=== PATIENT | male | born 1980 ===

== ENCOUNTER 2017-02-24 05:00 | Emergency (ER) | payer OTHER ==
--- NOTE | 2017-02-24 05:26 | ED PDOC ---
Arrival/HPI - General Chief Complaint: Psychiatric Evaluation Time Seen by Provider: 02/24/17 05:06 Historian: Patient, EMS - History of Present Illness Narrative History of Present Illness (Text): 02/24/17 05:25 Arslan Smart is a 36 year old male, denies any significant past medical history, who presents to the Emergency department brought in by EMS for psychiatric evaluation. EMS reports patient was found in the hallway of a fire house disoriented tonight. Patient admits to smoking marijuana tonight. Patient denies any depression, suicidal ideation, homicidal ideation, chest pain, shortness of breath, nausea, vomiting, headache, dizziness, or any other complaints. Time/Duration: Other (tonight) Symptom Onset: Gradual Symptom Course: Unchanged Activities at Onset: Light Context: Home Past Medical History - Provider Review Nursing Documentation Reviewed: Yes - Psychiatric Hx Substance Use: Yes (marijuana today) Family/Social History - Physician Review Nursing Documentation Reviewed: Yes Family/Social History: Unknown Family HX Smoking Status: Never Smoked Hx Alcohol Use: No Hx Substance Use: Yes (marijuana today) Allergies/Home Meds Allergies/Adverse Reactions: Allergies No Known Allergies Allergy (Verified 02/24/17 05:08) Home Medications: Home Meds Medication Instructions Recorded Confirmed No Known Home Med 02/24/17 02/24/17 Review of Systems - Physician Review All systems were reviewed & negative as marked: Yes - Review of Systems Constitutional: Normal. absent: Fevers Eyes: Normal ENT: Normal Respiratory: Normal. absent: SOB, Cough Cardiovascular: Normal. absent: Chest Pain Gastrointestinal: Normal. absent: Abdominal Pain, Diarrhea, Nausea, Vomiting Genitourinary Male: Normal. absent: Dysuria, Frequency, Hematuria, Urinary Output Changes Musculoskeletal: Normal. absent: Back Pain, Neck Pain Skin: Normal. absent: Rash Neurological: Normal. absent: Headache, Dizziness Endocrine: Normal Hemo/Lymphatic: Normal Psychiatric: Normal. absent: Depression, Suicidal Ideation Physical Exam Vital Signs Reviewed: Yes Vital Signs Temp Pulse Resp BP Pulse Ox 02/24/17 09:51 90 17 179/90 H 100 02/24/17 07:31 98.8 F 100 H 18 166/112 H 100 02/24/17 05:33 162/104 H 02/24/17 05:10 108 H 16 182/111 H 97 Temperature: Afebrile Blood Pressure: Hypertensive Pulse: Regular Respiratory Rate: Normal Appearance: Positive for: Well-Appearing, Non-Toxic, Comfortable Pain Distress: None Mental Status: Positive for: Alert and Oriented X 3 - Systems Exam Head: Present: Atraumatic, Normocephalic Pupils: Present: PERRL Extroacular Muscles: Present: EOMI Conjunctiva: Present: Normal Mouth: Present: Moist Mucous Membranes Neck: Present: Normal Range of Motion Respiratory/Chest: Present: Clear to Auscultation, Good Air Exchange. No: Respiratory Distress, Accessory Muscle Use Cardiovascular: Present: Regular Rate and Rhythm, Normal S1, S2. No: Murmurs Abdomen: Present: Normal Bowel Sounds. No: Tenderness, Distention, Peritoneal Signs Back: Present: Normal Inspection Upper Extremity: Present: Normal Inspection. No: Cyanosis, Edema Lower Extremity: Present: Normal Inspection. No: Edema Neurological: Present: GCS=15, CN II-XII Intact, Speech Normal Skin: Present: Warm, Dry, Normal Color. No: Rashes Psychiatric: Present: Alert, Oriented x 3, Normal Insight, Normal Concentration Medical Decision Making ED Course and Treatment: 02/24/17 05:25 Impression: 36 year old male brought in for psychiatric evaluation. Plan: -- EKG -- Labs, alcohol level -- Urinalysis, urine drug screen -- Reassess and disposition Progress Notes: 02/24/17 05:41 Reviewed EKG, sinus tachycardia at [address]-segment elevations or depressions, no T-wave inversions, normal intervals. 02/24/17 07:[address] Sigala, pending medical clearance, PES evaluation, and disposition. - Lab Interpretations Lab Results: 02/24/17 05:40 02/24/17 05:40 Lab Results 02/24/17 07:50: Urine Opiates Screen Negative, Urine Methadone Screen Negative, Ur Barbiturates Screen Negative, Ur Phencyclidine Scrn Positive H, Ur Amphetamines Screen Negative, U Benzodiazepines Scrn Positive, U Oth Cocaine Metabols Negative, U Cannabinoids Screen Positive H 02/24/17 07:50: Urine Color Yellow, Urine Appearance Clear, Urine pH 6.0, Ur Specific [place] 1.025, Urine Protein Trace H, Urine Glucose (UA) Negative, Urine Ketones Negative, Urine Blood Negative, Urine Nitrate Negative, Urine Bilirubin Negative, Urine Urobilinogen 0.2, Ur Leukocyte Esterase Negative, Urine RBC 0 - 2, Urine WBC 0 - 2, Ur Epithelial Cells 0 - 2 02/24/17 05:40: Alcohol, Quantitative < 10 02/24/17 05:40: Salicylates < 1 L, Acetaminophen < 10.0 L 02/24/17 05:40: Sodium 142, Potassium 3.5 L, Chloride 102, Carbon Dioxide 25, Anion Gap 19, BUN 14, Creatinine 0.9, Est GFR ( Amer) > 60, Est GFR (Non- Af Amer) > 60, Random Glucose 117 H, Calcium 10.2, Total Bilirubin 0.3, AST 37, ALT 42, Alkaline Phosphatase 101, Total Protein 8.4 H, Albumin 5.0 H, Globulin 3.4, Albumin/Globulin Ratio 1.5 02/24/17 05:40: WBC 11.7 H, RBC 4.75, Hgb 14.8, Hct 43.9, MCV 92.4, MCH 31.2, MCHC 33.7, RDW 13.5, Plt Count 363, MPV 9.6, Gran % 76.7 H, Lymph % (Auto) 14.2 L, George % (Auto) 8.8 H, Eos % (Auto) 0.2 L, Baso % (Auto) 0.1, Gran # 8.95 H, Lymph # 1.7, George # 1.0 H, Eos # 0.0, Baso # 0.01 - EKG Interpretation Interpreted by ED Physician: Yes Type: 12 lead EKG - Transfer of Care Patient signed out to Dr:: teresa fischer - Tommyibpura Statement The provider has reviewed the documentation as recorded by the Adamaris Solorio Provider Scribe Attestation: All medical record entries made by the Tommyibpura were at my direction and personally dictated by me. I have reviewed the chart and agree that the record accurately reflects my personal performance of the history, physical exam, medical decision making, and the department course for this patient. I have also personally directed, reviewed, and agree with the discharge instructions and disposition. Disposition/Present on Arrival - Present on Arrival Any Indicators Present on Arrival: No History of DVT/PE: No History of Uncontrolled Diabetes: No Urinary Catheter: No History of Decub. Ulcer: No History Surgical Site Infection Following: None - Disposition Have Diagnosis and Disposition been Completed?: Yes Diagnosis: Mood disorder, Substance abuse Disposition: HOME/ ROUTINE Disposition Time: 07:00 Condition: GOOD Discharge Instructions (ExitCare): Mood Disorders (ED), Polysubstance Abuse (ED ) Additional Instructions: Ann Saavedra that you are going through all of this right now. Please follow up as an outpatient using the list of referrals from our mental health screener. Return to us if worse or new problems. Best- Dr. Jeremy Sigala Forms: [employer] (Taiwanese)
[2017-02-24 06:36] LABS: BASO # 0.01 K/mm3 (0.0-2.0); BASO % 0.1 % (0.0-3.0); EOS % 0.2 % (1.5-5.0); GRAN # 8.95 (1.4-6.5); GRAN % 76.7 % (50.0-68.0); HEMOGLOBIN 14.8 g/dL (14.0-18.0); LYMPH # 1.7 (1.2-3.4); LYMPH % 14.2 % (22.0-35.0); MEAN CELL VOLUME 92.4 fl (80.0-105.0); MEAN CORPUSCULAR HEMOGLOBIN 31.2 pg (25.0-35.0); MEAN CORPUSCULAR HGB CONC 33.7 g/dl (31.0-37.0); MEAN PLATELET VOLUME 9.6 fl (7.0-11.0); MONO % 8.8 % (1.0-6.0); RBC 4.75 10^6/uL (3.5-6.1); RED CELL DISTRIBUTION WIDTH 13.5 % (11.5-14.5); WHITE BLOOD COUNT 11.7 10^3/ul (4.5-11.0)
--- NOTE | 2017-02-24 07:10 | ED PDOC ---
Physical Exam Vital Signs Reviewed: Yes Vital Signs Temp Pulse Resp BP Pulse Ox 02/24/17 09:51 90 17 179/90 H 100 02/24/17 07:31 98.8 F 100 H 18 166/112 H 100 02/24/17 05:33 162/104 H 02/24/17 05:10 108 H 16 182/111 H 97 Blood Pressure: Hypertensive Pulse: Tachycardic Respiratory Rate: Normal Medical Decision Making ED Course and Treatment: 02/24/17 07:10 Patient endorsed to me by Dr. Cid at 07:00, pending labs and PES evaluation. 02/24/17 11:26 Patient evaluated by PES worker Rufina, reports patient can be discharged home and follow up outpatient. - Lab Interpretations Lab Results: 02/24/17 05:40 02/24/17 05:40 Lab Results 02/24/17 07:50: Urine Opiates Screen Negative, Urine Methadone Screen Negative, Ur Barbiturates Screen Negative, Ur Phencyclidine Scrn Positive H, Ur Amphetamines Screen Negative, U Benzodiazepines Scrn Positive, U Oth Cocaine Metabols Negative, U Cannabinoids Screen Positive H 02/24/17 07:50: Urine Color Yellow, Urine Appearance Clear, Urine pH 6.0, Ur Specific [place] 1.025, Urine Protein Trace H, Urine Glucose (UA) Negative, Urine Ketones Negative, Urine Blood Negative, Urine Nitrate Negative, Urine Bilirubin Negative, Urine Urobilinogen 0.2, Ur Leukocyte Esterase Negative, Urine RBC 0 - 2, Urine WBC 0 - 2, Ur Epithelial Cells 0 - 2 02/24/17 05:40: Alcohol, Quantitative < 10 02/24/17 05:40: Salicylates < 1 L, Acetaminophen < 10.0 L 02/24/17 05:40: Sodium 142, Potassium 3.5 L, Chloride 102, Carbon Dioxide 25, Anion Gap 19, BUN 14, Creatinine 0.9, Est GFR ( Amer) > 60, Est GFR (Non- Af Amer) > 60, Random Glucose 117 H, Calcium 10.2, Total Bilirubin 0.3, AST 37, ALT 42, Alkaline Phosphatase 101, Total Protein 8.4 H, Albumin 5.0 H, Globulin 3.4, Albumin/Globulin Ratio 1.5 02/24/17 05:40: WBC 11.7 H, RBC 4.75, Hgb 14.8, Hct 43.9, MCV 92.4, MCH 31.2, MCHC 33.7, RDW 13.5, Plt Count 363, MPV 9.6, Gran % 76.7 H, Lymph % (Auto) 14.2 L, [place] % (Auto) 8.8 H, Eos % (Auto) 0.2 L, Baso % (Auto) 0.1, Gran # 8.95 H, Lymph # 1.7, [place] # 1.0 H, Eos # 0.0, Baso # 0.01 Disposition/Present on Arrival - Present on Arrival Any Indicators Present on Arrival: No History of DVT/PE: No History of Uncontrolled Diabetes: No Urinary Catheter: No History of Decub. Ulcer: No History Surgical Site Infection Following: None - Disposition Have Diagnosis and Disposition been Completed?: Yes Diagnosis: Mood disorder, Substance abuse Disposition: HOME/ ROUTINE Disposition Time: 11:26 Patient Plan: Discharge Condition: GOOD Discharge Instructions (ExitCare): Mood Disorders (ED), Polysubstance Abuse (ED ) Additional Instructions: Ann Saavedra that you are going through all of this right now. Please follow up as an outpatient using the list of referrals from our mental health screener. Return to us if worse or new problems. Nasir- Dr. Jeremy Sigala Forms: [employer] (Urdu)
[2017-02-24 07:21] LABS: ALT/SGPT 42 U/L (7-56); AST/SGOT 37 U/L (17-59); BLOOD UREA NITROGEN 14 mg/dL (7-21); CALCIUM 10.2 mg/dL (8.4-10.5); GFR AFRICAN-AMERICAN > 60; GFR NON-AFRICAN AMERICAN > 60
[2017-02-24 07:35] LABS: ALB/GLOB RATIO 1.5 (1.1-1.8)
[2017-02-24 07:37] VITALS: TEMP 98.8; O2SAT 100
[2017-02-24 08:02] LABS: URINE BILIRUBIN NEGATIVE (NEGATIVE); URINE BLOOD NEGATIVE (NEGATIVE); URINE GLUCOSE (UA) NEGATIVE (NEGATIVE); URINE LEUKOCYTE ESTERASE NEGATIVE Leu/uL (NEGATIVE); URINE NITRATE NEGATIVE (NEGATIVE); URINE PROTEIN TRACE mg/dL (<30 mg/dL); URINE UROBILINOGEN 0.2 E.U./dL (<1 E.U./dL)
[2017-02-24 08:04] LABS: URINE APPEARANCE CLEAR (CLEAR); URINE COLOR YELLOW (YELLOW)
[2017-02-24 08:07] LABS: URINE EPITHELIAL CELLS 0 - 2 /hpf (0-5); URINE RBC 0 - 2 /hpf (0-2); URINE WBC 0 - 2 /hpf (0-6)
[2017-02-24 08:53] LABS: BARBITURATES, UR NEGATIVE (NEGATIVE); OPIATES, UR NEGATIVE (NEGATIVE)
[2017-02-24 08:54] LABS: BENZODIAZEPINES, UR POSITIVE (NEGATIVE); PHENCYCLIDINE, UR POSITIVE (NEGATIVE)
[2017-02-24 09:36] LABS: ACETAMINOPHEN < 10.0 ug/ml (10.0-20.0); SALICYLATE < 1 mg/dL (2.0-20.0)
[2017-02-24 09:52] VITALS: BP 179/90; PULSE 90; RESP 17
--- NOTE | 2017-02-24 11:50 | CARD ---
APPROVED REPORT EKG Measurement Heart [id number] <Conclusion> Sinus tachycardia Electrical artifact present WNL
--- NOTE | 2017-02-25 13:02 | CON ---
DATE: 02/24/2017 PRESENTATION: The patient is a 36-year-old male seen at bedside in the emergency room, I was called for a consult to do a [id number] in the emergency room with this patient. He had presented to the emergency room brought in by EMS for psychiatric evaluation. He was found in the hallway of a firehouse disoriented. He admits to smoking marijuana and denied any psychiatric symptoms. No depression. No suicidal ideation. He was seen at bedside with his girlfriend. I asked her to step out while I spoke with him. The patient was cooperative with the interview. He indicates that he used marijuana and he got lost. His UTOX was noted to be positive for both PCP and marijuana. He indicated that that was true. However, he indicated he has been drinking as well. He indicates that he currently lives with his fiancee in an apartment in [place]. 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 He does have Medicaid. He denies having been psychiatrically hospitalized in the past. He denies ever being on any psychiatric medications and denies ever having any suicidal attempt or suicidal ideations. He indicates that he does have a problem with substances, he has been using them since he was 12 years old. He indicates that he started using when his friends did. In the recent past, he has used MDMA two days ago, marijuana, he has been a daily user since age of 12. PCP is an occasional use and he just used today. Alcohol, he only drinks when he uses, not on its own and he occasionally uses benzos. His drug of choice is marijuana and this is what he uses most of the time. Medically, he indicates that he has asthma and he uses an albuterol inhaler for this. He denies ever being in the . Legally, he has been in alf a few times for possession. He denies any access to weapons, any past or current history of violence or violent crimes. The patient denies any family history of alcohol, drugs or suicidal behaviors. The patient indicates he grew up in [place]. He lives with his mother. His father left early on, he does not have a relationship with his dad. He is the only child of his mother and father. His mother remarried when the patient was 4 and he has a half sister from that marriage with whom he is close. He indicates that he did well in school, his childhood was good. He graduated from high school in a regular education program and he did okay in school. He played basketball. 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 He went to [facility] [employer] for a little while, but he never quite is finished what he had set out to do. He has been in many rehabs in the past. He went to [facility] in [place]. He was inpatient there a couple of times, but he started using right away upon discharge. VITAL SIGNS: The temperature is 98.8, pulse rate of a 100, blood pressure of 166/112, much later went down to 179/90, respiratory rate of 18, and an O2 sat of 100%. LABORATORY DATA: As stated earlier his UTOX was positive for both PCP and marijuana, which is in line with what the patient shared with me. His white blood cells were 11.7. MENTAL STATUS EXAM: The patient is alert and oriented x3. His eye contact is good. His behavior is cooperative. Speech rate and volume are within in normal limits. Mood is anxious. Affect is constricted. His thoughts are at times goal directed and at times a little bit loose. He denies being suicidal or homicidal. Denies the presence of hallucination, delusions or paranoia. His concentration and his focus are impaired. His memory both short and long-term appears to have some deficit. His appetite and his sleep, he indicates are normal. DIAGNOSTIC IMPRESSION: Behavioral changes due to drug intoxication. PLAN: The patient denies being suicidal or homicidal and did not appear in any imminent danger of hurting himself or anyone else. He denies the presence of hallucination, delusions or paranoia. At this time, the patient is not willing to stay in the hospital. He does not meet the criteria for involuntary commitment and he does not appear in any imminent danger at this time. His fiancee is going to take him home to [place]. Case was discussed with Dr. Macario and with the psych emergency worker. The patient was discharged against medical advice. Thank you for the consult. Renetta Porter APN [facility] # [id number] VISHAL
== END 2017-02-24 12:05 | disposition home or self-care (01) ==
LOC: ED 05:00
DX: F39 Unspecified mood [affective] disorder (principal); F12.90 Cannabis use, unspecified, uncomplicated